=== PATIENT | male | born 1975 | race Caucasian/White ===

== ENCOUNTER 2020-04-26 10:45 | Emergency (ER) | payer MEDICAID ==
[~2020-04-26] VITALS: Ht 175.3 cm; Wt 72.7 kg
[~2020-04-26 10:45] MED LIST: ACET1TAB12 PO
[2020-04-26 10:51] VITALS: BP 181/109
[2020-04-26] MEDS ORDERED: normal saline 1000ML IV soln IV ONE (11:10)
[2020-04-26] MEDS ORDERED: vancomycin/NS 1 GM ADD-VANTAGE 250 ML IV ONE (11:10)
[2020-04-26] MEDS ORDERED: CefTRIAXone 2gm/D5W 50ml BAG 50 ML IV ONE (11:10)
[2020-04-26] MEDS ORDERED: ondansetron/PF 4mg/2ml inj IV ONE (11:10)
[2020-04-26] MEDS ORDERED: morphine 4 MG/ML inj SYRINge IV ONE (11:10)
--- NOTE | 2020-04-26 11:12 | NUR ---
Attempted to assist pt into hospital gown and initiate PIV when the pt began voicing concerns about staying in the hospital as he had to get his RV "out of the road", and he was also concerned about his dog, who is currently with a friend. When asked if the friend could watch his dog for hime, he stated he was unsure. I reexplained to the pt that he needed IV antibiotics and treatment for his hand. Added to pt that even if he felt that he could not stay overnight that we could still treat him in the ED. Pt asked if he could go talk to his friend who was in the parking lot regarding his dog, which I stated he could do. I told pt he was free to leave his belongings in his ER room, which he stated he "needed" to take with him.
--- NOTE | 2020-04-26 11:25 | NUR ---
Dexter, PCT observed pt getting into a vehicle. He asked pt if was going to stay to be treate, at which point pt stated "I have to figure some stuff out before I stay" and left in the vehicle. ROB Moore made aware.
== END 2020-04-26 11:30 | disposition left against medical advice (07) ==
LOC: ER 10:46
DX: L08.89 Other specified local infections of the skin and subcutaneous tissue (principal); M79.641 Pain in right hand; R22.32 Localized swelling, mass and lump, left upper limb; F17.200 Nicotine dependence, unspecified, uncomplicated; F15.90 Other stimulant use, unspecified, uncomplicated; Z72.89 Other problems related to lifestyle; Z86.19 Personal history of other infectious and parasitic diseases; Z79.899 Other long term (current) drug therapy
CPT/HCPCS: 99281